=== PATIENT | male | born 1975 | race African-American/Black ===

== ENCOUNTER 2016-05-04 17:39 | Emergency (ER) | payer MEDICAID ==
[2016-05-04] MEDS ORDERED: OXYCODONE-ACETAMINOPHEN 5-325 MG TABLET PO ONE (17:57)
--- NOTE | 2016-05-04 17:58 | ER Document Report ---
ED Medical Screen (RME) - General Stated Complaint: HAND INJURY Time seen by provider: 17:55 Mode of Arrival: Ambulatory Notes: Patient states he dropped weights on his right hand earlier this week, then finger was caught in door a couple of days ago. Complains of pain and swelling. Denies previous injury to hand. I have greeted and performed a rapid initial assessment of this patient. A comprehensive ED assessment and evaluation of the patient, analysis of test results and completion of the medical decision making process will be conducted by additional ED providers. TRAVEL OUTSIDE OF THE [place] IN LAST 30 DAYS: No - Related Data Allergies/Adverse Reactions: No Known Allergies Allergy (Verified 05/04/16 17:57) Past Medical History - Immunizations Immunizations up to date: Yes Hx Diphtheria, Pertussis, Tetanus Vaccination: Yes Physical Exam - Vital signs Vitals: Temp Pulse Resp BP Pulse Ox 98.2 F 77 20 116/76 97 05/04/16 17:53 05/04/16 17:53 05/04/16 17:53 05/04/16 17:53 05/04/16 17:53 - Extremities Notes: Swelling and tenderness to right lateral hand. Pain with movement of fingers. Course - Vital Signs Vital signs: Temp Pulse Resp BP Pulse Ox 98.2 F 77 20 116/76 97 05/04/16 17:53 05/04/16 17:53 05/04/16 17:53 05/04/16 17:53 05/04/16 17:53
--- NOTE | 2016-05-04 18:36 | ER Document Report ---
ED Hand/Wrist Injury - General Mode of Arrival: Ambulatory Information source: Patient TRAVEL OUTSIDE OF THE [place] IN LAST 30 DAYS: No - HPI Injury to: Hand - right Severity: None <RAQUEL KHANNA - Last Filed: 05/04/16 22:03> <PEDRITO GORDON - Last Filed: 05/04/16 22:36> - General Chief Complaint: Hand Swelling Stated Complaint: HAND INJURY Notes: Patient is a 41-year-old male that presents to the emergency department today with complaints of right hand pain. Patient's significant other at bedside slammed his right hand in the door a few days ago. Patient denies any other symptoms. (RAQUEL KHANNA) - Related Data Allergies/Adverse Reactions: No Known Allergies Allergy (Verified 05/04/16 17:57) Past Medical History - General Information source: Patient - Social History Smoking Status: Current Every Day Smoker Cigarette use (# per day): Yes Chew tobacco use (# tins/day): No Frequency of alcohol use: None Drug Abuse: None Lives with: Spouse/Significant other Family History: Reviewed & Not Pertinent Patient has suicidal ideation: No Patient has homicidal ideation: No - Medical History Medical History: Negative Surgical Hx: Negative - Immunizations Immunizations up to date: Yes Hx Diphtheria, Pertussis, Tetanus Vaccination: Yes <RAQUEL KHANNA - Last Filed: 05/04/16 22:03> Review of Systems - Review of Systems Constitutional: No symptoms reported EENT: No symptoms reported Cardiovascular: No symptoms reported Respiratory: No symptoms reported Gastrointestinal: No symptoms reported Genitourinary: No symptoms reported Male Genitourinary: No symptoms reported Musculoskeletal: See HPI, Joint pain - right hand Skin: No symptoms reported Hematologic/Lymphatic: No symptoms reported Neurological/Psychological: No symptoms reported -: Yes All other systems reviewed and negative <RAQUEL KHANNA - Last Filed: 05/04/16 22:03> Physical Exam - Vital signs Interpretation: Normal - General General appearance: Appears well, Alert - HEENT Head: Normocephalic, Atraumatic Eyes: Normal Pupils: PERRL - Respiratory Respiratory status: No respiratory distress Chest status: Nontender Breath sounds: Normal Chest palpation: Normal - Cardiovascular Rhythm: Regular Heart sounds: Normal auscultation Murmur: No - Abdominal Inspection: Normal Distension: No distension Bowel sounds: Normal Tenderness: Nontender Organomegaly: No organomegaly - Back Back: Normal, Nontender - Extremities General upper extremity: Tender, Normal color, Normal ROM, Normal strength, Normal temperature General lower extremity: Normal inspection, Nontender, Normal color, Normal ROM , Normal temperature, Normal weight bearing. No: Toshia's sign Hand: Tender, Other - Tenderness to palpation over right fifth metacarpal, swelling, no laceration or erythema - Neurological Neuro grossly intact: Yes Cognition: Normal Orientation: AAOx4 [place] Coma Scale Eye Opening: Spontaneous [place] Coma Scale Verbal: Oriented [place] Coma Scale Motor: Obeys Commands [place] Coma Scale Total: 15 Speech: Normal Motor strength normal: LUE, RUE, LLE, RLE Sensory: Normal - Psychological Associated symptoms: Normal affect, Normal mood - Skin Skin Temperature: Warm Skin Moisture: Dry Skin Color: Normal <PEDRITO GORDON - Last Filed: 05/04/16 22:36> - Vital signs Vitals: Temp Pulse Resp BP Pulse Ox 98.2 F 77 20 116/76 97 05/04/16 17:53 05/04/16 17:53 05/04/16 17:53 05/04/16 17:53 05/04/16 17:53 Course <RAQUEL KHANNA - Last Filed: 05/04/16 22:03> - Diagnostic Test Radiology reviewed: Reports reviewed <PEDRITO GORDON - Last Filed: 05/04/16 22:36> - Re-evaluation Re-evalutation: 05/04/16 22:34 Patient with boxer's fracture. No evidence for laceration or bite. Patient will be placed in splint and is to follow-up with orthopedics. Understands agrees with plan. No other injuries. Neurovascularly intact. Stable for discharge. (PEDRITO GORDON) - Vital Signs Vital signs: Temp Pulse Resp BP Pulse Ox 98.2 F 68 16 112/73 98 05/04/16 17:53 05/04/16 20:54 05/04/16 20:54 05/04/16 20:54 05/04/16 20:54 Procedures - Immobilization Right Hand Pre-Proc Neuro Vasc Exam: Normal Immobilizer type: Ulnar Performed by: PCT Post-Proc Neuro Vasc Exam: Normal Alignment checked and good: Yes <PEDRITO GORDON - Last Filed: 05/04/16 22:36> Discharge <RAQUEL KHANNA - Last Filed: 05/04/16 22:03> <PEDRITO GORDON - Last Filed: 05/04/16 22:36> - Discharge Clinical Impression: Boxer's fracture Qualifiers: Encounter type: initial encounter Fracture type: closed Qualified Code(s): S62.309A - Unspecified fracture of unspecified metacarpal bone, initial encounter for closed fracture Condition: Stable Disposition: HOME, SELF-CARE Instructions: Fractured Fifth Metacarpal ([facility]) Prescriptions: Oxycodone HCl/Acetaminophen [Percocet 5-325 mg Tablet] 1 tab PO Q4H PRN #15 tablet PRN Reason: Referrals: SHIRLEY SIERRA [Primary Care Provider] - Follow up as needed LIBBY VELASCO DO [ACTIVE STAFF] - Follow up in 3-5 days Scribe Attestation: 05/04/16 22:36 I personally performed the services described in the documentation, reviewed and edited the documentation which was dictated to the scribe in my presence, and it accurately records my words and actions. (PEDRITO GORDON) Scribe Documentation - Scribe Written by Micheal:: Micheal Day, 05/04/2016 2205 acting as scribe for :: Emily <RAQUEL KHANNA - Last Filed: 05/04/16 22:03>
[2016-05-04 20:55] VITALS: BP 112/73
== END 2016-05-04 20:55 | disposition home or self-care (01) ==
LOC: ER 17:39
PROC: 2W3EX1Z Immobilization of Right Hand using Splint (ICD-10-PCS; principal; 2016-05-04)
DX: S62.309A Unspecified fracture of unspecified metacarpal bone, initial encounter for closed fracture (principal); F17.210 Nicotine dependence, cigarettes, uncomplicated; W20.8XXA Other cause of strike by thrown, projected or falling object, initial encounter
CPT/HCPCS: 99283

== ENCOUNTER 2017-08-04 02:48 | Emergency (ER) | payer MEDICAID ==
[2017-08-04 02:55] VITALS: BP 129/65
[2017-08-04] MEDS ORDERED: TETRACAINE HCL 0.5% OPH SOLN 2 ML OS ONE (03:29)
[2017-08-04] MEDS ORDERED: ERYTHROMYCIN 0.5% OPH OINTMENT 3.5 GM (ER DISP) OS PRN (03:43)
--- NOTE | 2017-08-04 03:53 | ER Document Report ---
ED General - General Chief Complaint: Eye Problem Stated Complaint: RT EYE IRRITATION Time Seen by Provider: 08/04/17 03:22 Notes: Patient is a 42-year-old male who presents with complaint of pain and redness in his right eye. Been there for 3 days. He got some Cipro eyedrops and start using them. He says that the eyedrops seem to make it burn worse. He denies any history of herpes. He denies any recent fevers or URI type symptoms. He says in the morning his eyes matted shut with mucus. No trauma to the eye. He does not remember anything going into his eye. He does not work with grinders or any type of mental flaking. He does not have significant photophobia. TRAVEL OUTSIDE OF THE [place] IN LAST 30 DAYS: No - Related Data Allergies/Adverse Reactions: No Known Allergies Allergy (Verified 05/04/16 17:57) Past Medical History - Social History Smoking Status: Current Every Day Smoker Frequency of alcohol use: None Drug Abuse: None Family History: Reviewed & Not Pertinent Patient has suicidal ideation: No Patient has homicidal ideation: No Renal/ Medical History: Denies: Hx Peritoneal Dialysis - Immunizations Immunizations up to date: Yes Hx Diphtheria, Pertussis, Tetanus Vaccination: Yes Review of Systems - Review of Systems Notes: My Normal Review Basic REVIEW OF SYSTEMS: CONSTITUTIONAL : Denies fever, chills, or sweats. Denies recent illness. EENT: Right eye redness RESPIRATORY: Denies cough, cold, or chest congestion. Denies shortness of breath, difficulty breathing, or wheezing. NEUROLOGICAL: Denies altered mental status or loss of consciousness. Denies headache. Denies weakness or paralysis or loss of use of either side. Denies problems with gait or speech. Denies sensory or motor loss. ALL OTHER SYSTEMS REVIEWED AND NEGATIVE. Physical Exam - Vital signs Vitals: Temp Pulse Resp BP Pulse Ox 98.3 F 76 18 129/65 H 97 08/04/17 02:54 08/04/17 02:54 08/04/17 02:54 08/04/17 02:54 08/04/17 02:54 - Notes Notes: General Appearance: Well nourished, alert, cooperative, no acute distress, no obvious discomfort. Vitals: reviewed, See vital signs table. Head: no swelling or tenderness to the head Eyes: PERRL, EOMI, patient does have some erythema to the conjunctive of the right eye. No hyphema or hypopyon. Fluorescein staining does not show any evidence of abrasion or ulceration. Cornea is not cloudy. Checo-Pen pressure of the right eye is 13. Mouth: No decreasd moisture Neuro: speech clear, oriented x 3, normal affect, responds appropriately to questions. Course - Re-evaluation Re-evalutation: 08/04/17 03:58 Patient has what appears to be conjunctivitis. His eye seems to be more irritated with the Cipro. We will change him on erythromycin ointment and refer him to the [facility]. Informants extremely important he follows up with the [facility] next couple days. Patient encouraged to return to ER if he has worsening eye redness, difficulty seeing on the eye, or she feels it is worse in any way. Patient's visual acuity was normal. Patient's intraocular pressure was normal. I do not see any evidence of abrasion or foreign body on my examination. She agrees with plan will be discharged home. Dictation of this chart was performed using voice recognition software; therefore, there may be some unintended grammatical errors. - Vital Signs Vital signs: Temp Pulse Resp BP Pulse Ox 98.3 F 76 18 129/65 H 97 08/04/17 02:54 08/04/17 02:54 08/04/17 02:54 08/04/17 02:54 08/04/17 02:54 Discharge - Discharge Clinical Impression: Pain, eye, right Conjunctivitis Qualifiers: Conjunctivitis type: acute Acute conjunctivitis type: unspecified Laterality: right Qualified Code(s): H10.31 - Unspecified acute conjunctivitis, right eye Condition: Good Disposition: HOME, SELF-CARE Additional Instructions: Please stop using the Cipro eye drops. Please start using the ointment instead. You should apply a thin layer of the Erythromycin ointment to your right eye six times a day for seven days. Please follow up closely with the [facility] boarding room. I have provided the phone number to two different [facility] boarding room. Please call to see which one can get you in within the next 1 to 3 days. Pleas return to the ER immediately if you have fevers, worsening eye pain or worsening eye redness. Prescriptions: Erythromycin Base [Erythromycin Oph 1 gm Oint Ud] 1 applic OD 6XD #1 tube Forms: Special Work Note Referrals: ALICIA ROLDAN MD [ACTIVE STAFF] - Follow up tomorrow KRIS SCHAFER DO [ACTIVE STAFF] - Follow up tomorrow
== END 2017-08-04 04:09 | disposition home or self-care (01) ==
LOC: ER 02:48
DX: H10.31 Unspecified acute conjunctivitis, right eye (principal); H57.11 Ocular pain, right eye; F17.200 Nicotine dependence, unspecified, uncomplicated
CPT/HCPCS: 99282; J3490

== ENCOUNTER 2018-09-14 10:54 | Inpatient (IN) | payer MEDICAID ==
[2018-09-14] MEDS ORDERED: ONDANSETRON HCL INJ/PF 4 MG/2 ML SDV IV ONE (11:16)
[2018-09-14] MEDS ORDERED: HYDROMORPHONE HCL INJ/PF 2 MG/ML AMPULE IV ONE (11:17)
[2018-09-14] MEDS ORDERED: KETOROLAC TROMETHAMINE INJ/PF 30 MG/1 ML SDV IV ONE (11:22)
[2018-09-14] MEDS: NORMAL SALINE 1000 ML 1,000 ML IV PRN ×2 (11:32→12:51)
[2018-09-14 11:43] LABS: ABSOLUTE LYMPHOCYTES (AUTO) 0.6 10^3/uL (0.5-4.7); ABSOLUTE MONOCYTES (AUTO) 0.4 10^3/uL (0.1-1.4); ABSOLUTE NEUT (AUTO) 7.6 10^3/uL (1.7-8.2); BASOPHILS % (AUTO) 0.3 % (0-2); EOSINOPHILS % (AUTO) 0.1 % (0-6); HEMATOCRIT 45.2 % (37.9-51.0); HEMOGLOBIN 15.2 g/dL (13.5-17.0); LYMPHOCYTES % (AUTO) 6.5 % (13-45); MEAN CORPUSCULAR HEMOGLOBIN 32.9 pg (27.0-33.4); MEAN CORPUSCULAR HGB CONC 33.7 g/dL (32.0-36.0); MEAN CORPUSCULAR VOLUME 98 fl (80-97); MONOCYTES % (AUTO) 4.3 % (3-13); PLATELET COUNT 264 10^3/uL (150-450); RED BLOOD COUNT 4.62 10^6/uL (4.35-5.55); RED CELL DISTRIBUTION WIDTH 14.2 % (11.5-14.0); SEGMENTED NEUTROPHILS % (AUTO) 88.8 % (42-78); TOTAL CELLS COUNTED % (AUTO) 100 %; WHITE BLOOD COUNT 8.6 10^3/uL (4.0-10.5)
[2018-09-14 12:03] LABS: ALANINE AMINOTRANSFERASE 85 U/L (21-72); ALBUMIN 4.8 g/dL (3.5-5.0); ALKALINE PHOSPHATASE 57 U/L (38-126); ANION GAP 12 (5-19); ASPARTATE AMINO TRANSFERASE 77 U/L (17-59); BILIRUBIN,DIRECT 0.3 mg/dL (0.0-0.4); BILIRUBIN,TOTAL 1.1 mg/dL (0.2-1.3); BLOOD UREA NITROGEN 9 mg/dL (7-20); CALCIUM 10.5 mg/dL (8.4-10.2); CARBON DIOXIDE 25 mmol/L (22-30); CHLORIDE 102 mmol/L (98-107); GLUCOSE 104 mg/dL (75-110); POTASSIUM 4.8 mmol/L (3.6-5.0); SODIUM 138.8 mmol/L (137-145); TOTAL PROTEIN 8.5 g/dL (6.3-8.2)
[2018-09-14 12:06] LABS: ALCOHOL < 10 mg/dL (NONE DETECTED)
[2018-09-14 12:10] LABS: LIPASE 3502.8 U/L (23-300)
--- NOTE | 2018-09-14 12:38 | ER Document Report ---
ED GI/ - General Chief Complaint: Abdominal Pain Stated Complaint: ABDOMINAL PAIN Time Seen by Provider: 09/14/18 11:11 Primary Care Provider: SHIRLEY SIERRA [Primary Care Provider] - Follow up as needed Notes: Patient is complaining of "stomach pains" since yesterday about 2 PM. He is never had anything like this before. Pain is in the mid epigastric region and very sharp and severe. He is vomited about 3 times. No change in his bowel habits. Has not had any fever. No history of any abdominal surgeries. Patient does not have any history of pancreatitis. However, does acknowledge drinking very heavily, although none in the past 24 hours because of his vomiting. Patient is not on any regular prescription medications. TRAVEL OUTSIDE OF THE [place] IN LAST 30 DAYS: No - Related Data Allergies/Adverse Reactions: No Known Allergies Allergy (Verified 09/14/18 10:55) Past Medical History - Social History Smoking Status: Unknown if Ever Smoked Frequency of alcohol use: Heavy Family History: Reviewed & Not Pertinent Past Surgical History: Reports: None - Immunizations Immunizations up to date: Yes Hx Diphtheria, Pertussis, Tetanus Vaccination: Yes Review of Systems - Review of Systems Notes: REVIEW OF SYSTEMS: CONSTITUTIONAL : Denies fever. EENT: Denies eye, ear, nose or mouth or throat pain or other symptoms. CARDIOVASCULAR: Denies chest pain. RESPIRATORY: Denies cough, chest congestion, or shortness of breath. GASTROINTESTINAL: See HPI. GENITOURINARY: Denies difficulty or painful urinating, urinary frequency, blood in urine. MUSCULOSKELETAL: Denies back or neck pain. Denies joint pain or swelling. SKIN: Denies rash or skin lesions. NEUROLOGICAL: Denies LOC or altered mental status. Denies headache. Denies sensory loss or motor deficits. ALL OTHER SYSTEMS REVIEWED AND NEGATIVE. Physical Exam - Vital signs Vitals: Temp Pulse Resp BP Pulse Ox 97.7 F 102 H 14 161/126 H 97 09/14/18 10:57 09/14/18 10:57 09/14/18 10:57 09/14/18 10:57 09/14/18 10:57 Interpretation: Hypertensive - 161/126. Notes: PHYSICAL EXAMINATION: GENERAL: Well-appearing, in no acute distress. Patient appears to be in severe pain, laying on his right side. Difficult to get him to lay onto his back. Actively vomiting in his room at this time. HEAD: Atraumatic, normocephalic. EYES: Pupils equal round and reactive to light, extraocular movements intact. ENT: oropharynx clear without exudates. Moist mucous membranes. NECK: Normal range of motion, supple. LUNGS: Breath sounds clear and equal bilaterally. HEART: Regular rate and rhythm without murmurs. ABDOMEN: Extremely tender in the midepigastrium to any firm pressure. No masses felt. No bruits heard. No surgical scars. BACK: No tenderness throughout entire back. EXTREMITIES: Normal range of motion without pain. NEUROLOGICAL: Normal speech, normal gait. Normal sensory, motor, and reflex exams. Awake, alert, and oriented x3. Cranial nerves normal. PSYCH: Normal mood, normal affect. SKIN: Warm, dry, no rashes. Course - Re-evaluation Re-evalutation: 09/14/18 12:37 Patient's lipase is 3500, LFTs are very slightly elevated. Remaining lab studies were all normal. Have contacted hospitalist will admit the patient for fluids and pain management. - Vital Signs Vital signs: Temp Pulse Resp BP Pulse Ox 97.9 F 102 H 13 126/80 H 99 09/14/18 11:10 09/14/18 10:57 09/14/18 12:01 09/14/18 12:01 09/14/18 12:01 - Laboratory Result Diagrams: 09/14/18 11:20 09/14/18 11:20 Laboratory results interpreted by me: 09/14/18 09/14/18 11:20 11:20 MCV 98 H RDW 14.2 H Seg Neutrophils % 88.8 H Lymphocytes % 6.5 L Calcium 10.5 H AST 77 H ALT 85 H Total Protein 8.5 H Lipase 3502.8 H Discharge - Discharge Clinical Impression: Abdominal pain with vomiting, Pancreatitis Disposition: ADMITTED INPATIENT Admitting Provider: Yanira (Hospitalist) Unit Admitted: Medical Floor Referrals: SHIRLEY SIERRA [Primary Care Provider] - Follow up as needed
[2018-09-14] MEDS ORDERED: DEXTROSE 50%-WATER 25 GM/50 ML DISP.SYRIN IV PRN (12:57)
[2018-09-14] MEDS ORDERED: ONDANSETRON HCL INJ/PF 4 MG/2 ML SDV IV PRN (12:57)
[2018-09-14] MEDS ORDERED: DEXTROSE 40% GEL 15 GM TUBE PO PRN ×2 (12:57)
[2018-09-14] MEDS ORDERED: GLUCAGON,HUMAN RECOMB 1 MG INJ SUBCUT PRN (12:57)
[2018-09-14 13:11] LABS: APPEARANCE,URINE CLEAR; BILIRUBIN,URINE NEGATIVE (NEGATIVE); COLOR,URINE YELLOW; GLUCOSE, URINE NEGATIVE (NEGATIVE); KETONES,URINE 80 mg/dL (NEGATIVE); LEUKOCYTE ESTERASE,URINE NEGATIVE (NEGATIVE); NITRITE,URINE NEGATIVE (NEGATIVE); PROTEIN,URINE 100 mg/dL (NEGATIVE); URINE SPECIFIC GRAVITY 1.025; UROBILINOGEN,URINE NEGATIVE mg/dL (<2.0)
[2018-09-14 13:27] LABS: URINE AMPHETAMINES SCREEN NEGATIVE; URINE BARBITURATES SCREEN NEGATIVE; URINE BENZODIAZEPINES SCREEN NEGATIVE; URINE COCAINE SCREEN NEGATIVE; URINE MARIJUANA (THC) SCREEN NEGATIVE; URINE METHADONE SCREEN NEGATIVE; URINE PHENCYCLIDINE SCREEN NEGATIVE
[2018-09-14 14:08] LABS: INTERNATIONAL RATION (INR) 1.24; PROTHROMBIN TIME 15.7 SEC (11.4-15.4)
[2018-09-14 14:09] LABS: PARTIAL THROMBOPLASTIN TIME 26.7 SEC (23.5-35.8)
[2018-09-14] MEDS: HEPARIN SOD (PORCINE) 5,000 UNIT/ML 1 ML SYRINGE SUBCUT SCH ×2 (15:31→22:11)
[2018-09-14] MEDS: HYDROMORPHONE HCL INJ/PF 2 MG/ML AMPULE IV PRN ×2 (15:31→19:49)
[2018-09-14] MEDS ORDERED: LORAZEPAM INJ 2 MG/1 ML VIAL IV PRN (15:35)
--- NOTE | 2018-09-14 16:07 | PDOC H&P ---
History of Present Illness Admission Date/PCP: 09/14/18 12:47 SHIRLEY MARIELA Patient complains of: Midline abdominal pain and midline severe back pain History of Present Illness: THEODORE FISCHER is a 43 year old man who has a history of extensive alcohol use. He drinks about 12 beers on a daily basis. He is never had alcohol withdrawal and he has never had pancreatitis. Yesterday after he had a beer he had sudden onset of midline back pain radiating out to both sides. Along with that he had severe epigastric pain. He has had several episodes of emesis. No coffee grounds or blood. Came to the ER because the pain was so severe. No chest pain or difficulty breathing. No fevers or chills. Past Medical History Medical History: None Past Surgical History Past Surgical History: Reports: None, Orthopedic Surgery - left arm fracture Social History Information Source: Patient Occupation: disability for a "learning problem" Smoking Status: Unknown if Ever Smoked Frequency of Alcohol Use: Heavy - 12 pack daily for unknown number of years Amount of Alcoholic Beverages Per Day: 12 beers per day Last Alcohol Use: 09/13/18 Drugs: None Hx Prescription Drug Abuse: No Past Social History Note: one cigarette per day - Advance Directive Resuscitation Status: Full Code Surrogate healthcare decision maker:: mother: Ailyn Norton [phone] Family History Parental Family History Reviewed: Yes - none he is aware of Children Family History Reviewed: Yes - he has a 21 yo son with no medical problems Sibling(s) Family History Reviewed.: Yes - none he is aware of Medication/Allergy Home Medications: No Home Medications 09/14/18 Allergies/Adverse Reactions: No Known Allergies Allergy (Verified 09/14/18 10:55) Review of Systems Constitutional: PRESENT: anorexia. ABSENT: chills, fever(s), headache(s), weakness Eyes: ABSENT: visual disturbances Ears: ABSENT: hearing changes Nose, Mouth, and Throat: ABSENT: mouth pain Cardiovascular: ABSENT: chest pain, dyspnea on exertion, edema, orthropnea, palpitations Gastrointestinal: PRESENT: abdominal pain, nausea, vomiting. ABSENT: coffee ground emesis, constipation, diarrhea, dysphagia, hematemesis, melena Genitourinary: ABSENT: dysuria, hematuria Musculoskeletal: ABSENT: deformity, joint swelling, muscle weakness Integumentary: ABSENT: diaphoresis, wounds Neurological: ABSENT: convulsions, dizziness, frequent falls, numbness, tingling, weakness Psychiatric: ABSENT: anxiety, depression Hematologic/Lymphatic: ABSENT: easy bleeding Physical Exam Vital Signs: Temp Pulse Resp BP Pulse Ox 98.9 F 55 L 18 137/92 H 100 09/14/18 14:20 09/14/18 14:20 09/14/18 14:20 09/14/18 14:20 09/14/18 14:20 Intake & Output 09/13/18 09/14/18 09/15/18 06:59 06:59 06:59 Intake Total 1999 Balance 1999 Weight 59.9 kg General appearance: PRESENT: mild distress, thin Head exam: PRESENT: atraumatic, normocephalic Eye exam: PRESENT: EOMI. ABSENT: conjunctival injection, scleral icterus Ear exam: PRESENT: normal external ear exam Mouth exam: PRESENT: neck supple, tongue midline Neck exam: ABSENT: tenderness, tracheostomy Respiratory exam: PRESENT: clear to auscultation gibran, unlabored. ABSENT: rales, rhonchi, wheezes Cardiovascular exam: PRESENT: RRR, +S1, +S2. ABSENT: systolic murmur Pulses: PRESENT: normal radial pulses Vascular exam: PRESENT: normal capillary refill GI/Abdominal exam: PRESENT: diminished bowel sounds, guarding, tenderness. ABSENT: ascites, distended Rectal exam: PRESENT: deferred Gentrourinary exam: ABSENT: indwelling catheter Extremities exam: ABSENT: calf tenderness, joint swelling, pedal edema Musculoskeletal exam: PRESENT: normal inspection. ABSENT: deformity Neurological exam: PRESENT: alert, awake, oriented to person, oriented to place, oriented to situation, CN II-XII grossly intact Psychiatric exam: PRESENT: appropriate affect. ABSENT: anxious Skin exam: PRESENT: dry, intact, warm Results Laboratory Results: 09/14/18 11:20 09/14/18 11:20 09/14/18 09/14/18 09/14/18 11:10 11:20 11:20 WBC 8.6 RBC 4.62 Hgb 15.2 Hct 45.2 MCV 98 H MCH 32.9 MCHC 33.7 RDW 14.2 H Plt Count 264 Seg Neutrophils % 88.8 H Lymphocytes % 6.5 L Monocytes % 4.3 Eosinophils % 0.1 Basophils % 0.3 Absolute Neutrophils 7.6 Absolute Lymphocytes 0.6 Absolute Monocytes 0.4 Absolute Eosinophils 0.0 Absolute Basophils 0.0 Sodium 138.8 Potassium 4.8 Chloride 102 Carbon Dioxide 25 Anion Gap 12 BUN 9 Creatinine 0.72 Est GFR ( Amer) > 60 Est GFR (Non-Af Amer) > 60 Glucose 104 Calcium 10.5 H Total Bilirubin 1.1 AST 77 H ALT 85 H Alkaline Phosphatase 57 Total Protein 8.5 H Albumin 4.8 Lipase 3502.8 H TSH 0.44 L Urine Color Urine Appearance Urine pH Ur Specific [place] Urine Protein Urine Glucose (UA) Urine Ketones Urine Blood Urine Nitrite Ur Leukocyte Esterase Urine WBC (Auto) Urine RBC (Auto) 09/14/18 12:55 WBC RBC Hgb Hct MCV MCH MCHC RDW Plt Count Seg Neutrophils % Lymphocytes % Monocytes % Eosinophils % Basophils % Absolute Neutrophils Absolute Lymphocytes Absolute Monocytes Absolute Eosinophils Absolute Basophils Sodium Potassium Chloride Carbon Dioxide Anion Gap BUN Creatinine Est GFR ( Amer) Est GFR (Non-Af Amer) Glucose Calcium Total Bilirubin AST ALT Alkaline Phosphatase Total Protein Albumin Lipase TSH Urine Color YELLOW Urine Appearance CLEAR Urine pH 5.0 Ur Specific [place] 1.025 Urine Protein 100 H Urine Glucose (UA) NEGATIVE Urine Ketones 80 H Urine Blood NEGATIVE Urine Nitrite NEGATIVE Ur Leukocyte Esterase NEGATIVE Urine WBC (Auto) 2 Urine RBC (Auto) 1 Assessment and Plan - Diagnosis (1) Pancreatitis Qualifiers: Chronicity: acute Is this a current diagnosis for this admission?: Yes Plan: Probably related to excessive alcohol intake. I had a discussion with the patient the importance of discontinuation of alcohol. We will continue to in house counsel him on the importance of alcohol cessation. For the pancreatitis he will be on IV fluids, n.p.o., Dilaudid 1 mg IV every 4 hours as needed moderate to severe pain. Will increase the Dilaudid frequency if needed to control pain. We will monitor closely for adverse effects of Dilaudid. (2) Back pain Qualifiers: Back pain location: thoracic back pain Chronicity: acute Back pain laterality: bilateral Qualified Code(s): M54.6 - Pain in thoracic spine Is this a current diagnosis for this admission?: Yes Plan: Probably related to the pancreatitis. The back pain is severe. He reports muscle spasm. Because of this in the setting of the acute pancreatitis CT scan of the abdomen and pelvis has been ordered to evaluate for complications related to the pancreatitis. We will treat pain with Dilaudid as noted above. (3) Alcohol use disorder Is this a current diagnosis for this admission?: Yes Plan: Alcohol cessation counseling occurred. However patient is in severe pain with the pancreatitis so this is probably not the best time to engage in counseling. Continue to in house counsel the patient on alcohol cessation. He has no signs of alcohol withdrawal and has not withdrawn in the past as far as he knows. I have ordered Ativan 2 mg IV every 4 hours as needed agitation and asked the nursing staff to call physician on duty if patient starts to use this Ativan so that we can address possible withdrawal quickly. (4) Abdominal pain with vomiting Is this a current diagnosis for this admission?: Yes Plan: Likely related to acute pancreatitis. No coffee grounds or bright red blood in the vomitus. She has Zofran ordered as needed. Will monitor closely. H&H are not concerning at this time. - Time Time Spent with patient: 25-34 minutes Anticipated discharge: Home - Inpatient Certification Based on my medical assessment, after consideration of the patient's comorbi dities, presenting symptoms, or acuity I expect that the services needed warrant INPATIENT care.: Yes I certify that my determination is in accordance with my understanding of Medicare's requirements for reasonable and necessary INPATIENT services [42 CFR 412.3e].: Yes Medical Necessity: Need For IV Fluids, Need for Pain Control - Plan Summary Plan Summary: This patient has acute alcoholic pancreatitis. He needs IV fluids and IV pain medicine. He is n.p.o. I suspect that he will be here greater than 2 midnights secondary to this acute condition. Also he has a history of daily alcohol use. I have ordered as needed Ativan, no signs of alcohol withdrawal at this time.
--- NOTE | 2018-09-14 17:46 | RADIOLOGY REPORT (SQ) ---
EXAM DESCRIPTION: CT ABD/PELVIS ORAL ONLY COMPLETED DATE/TIME: 09/14/2018 4:31 pm REASON FOR STUDY: acute pancreatitis, severe back pain . Abdominal pain, vomiting, elevated lipase. COMPARISON: None. TECHNIQUE: CT scan of the abdomen and pelvis performed with oral contrast and no intravenous contras t. Images reviewed with lung, soft tissue, and bone windows. Reconstructed coronal and sagittal MPR i mages reviewed. All images stored on PACS. All CT scanners at this facility use dose modulation, iterative reconstruction, and/or weight based d osing when appropriate to reduce radiation dose to as low as reasonably achievable (ALARA). [facility]: Dose Right [facility]: CareDose [facility]: Dose Right [facility]: Teradose 4D [facility]: [employer] RADIATION DOSE: CT Rad equipment meets quality standard of care and radiation dose reduction techniq ues were employed. CTDIvol: 4.8 mGy. DLP: 261 mGy-cm.mGy. LIMITATIONS: None. FINDINGS: LOWER CHEST: Mild bibasilar atelectasis and trace bilateral pleural effusions. NON-CONTRASTED LIVER, SPLEEN, ADRENALS: Evaluation limited by lack of IV contrast. No identified sign ificant masses. PANCREAS: There are peripancreatic inflammatory changes. GALLBLADDER: No identified stones by CT criteria. No inflammatory changes to suggest cholecystitis. RIGHT KIDNEY AND URETER: Assessment for masses limited by lack of IV contrast. No significant calci fications. No hydronephrosis or hydroureter. LEFT KIDNEY AND URETER: Assessment for masses limited by lack of IV contrast. No significant calcif ications. No hydronephrosis or hydroureter. AORTA AND RETROPERITONEUM: No abdominal aortic aneurysm. No retroperitoneal masses or hemorrhage. BOWEL AND PERITONEAL CAVITY: The oral contrast has reached the cecum, no small bowel obstruction. Tr del free fluid. Inflammatory changes are noted at small bowel loops at the upper abdomen. APPENDIX: Normal. PELVIS, BLADDER, AND ABDOMINAL WALL:No pelvic mass. Trace free fluid. Bladder distended. BONES: No significant findings. IMPRESSION: 1. Peripancreatic inflammatory changes with trace ascites, suggestive of acute pancreat itis. The inflammatory changes extend to adjacent small bowel loops at the upper abdomen, superimpos ed enteritis is not excludable. 2. Mild bibasilar atelectasis and trace bilateral pleural effusions. TECHNICAL DOCUMENTATION: JOB ID: [id number] [employer] Quality ID # [id number]: Final reports with documentation of one or more dose reduction techniques (e.g., Au tomated exposure control, adjustment of the mA and/or kV according to patient size, use of iterative reconstruction technique) 2010 [employer]- All Rights Reserved Reading location - IP/workstation name: [email or web address]
[2018-09-14] MEDS: RINGERS SOLUTION,LACTATED 1,000 ML IV PRN (18:12)
[2018-09-15] MEDS: HYDROMORPHONE HCL INJ/PF 2 MG/ML AMPULE IV PRN ×6 (00:56→20:20)
[2018-09-15] MEDS: RINGERS SOLUTION,LACTATED 1,000 ML IV PRN ×3 (00:56→11:53)
[2018-09-15] MEDS: HEPARIN SOD (PORCINE) 5,000 UNIT/ML 1 ML SYRINGE SUBCUT SCH ×3 (05:02→21:06)
[2018-09-15 07:29] LABS: HEMATOCRIT 41.6 % (37.9-51.0); MEAN CORPUSCULAR HEMOGLOBIN 32.9 pg (27.0-33.4); MEAN CORPUSCULAR HGB CONC 33.7 g/dL (32.0-36.0); MEAN CORPUSCULAR VOLUME 98 fl (80-97); PLATELET COUNT 214 10^3/uL (150-450); RED BLOOD COUNT 4.26 10^6/uL (4.35-5.55); RED CELL DISTRIBUTION WIDTH 13.9 % (11.5-14.0); WHITE BLOOD COUNT 8.3 10^3/uL (4.0-10.5)
[2018-09-15 08:09] LABS: ALANINE AMINOTRANSFERASE 54 U/L (21-72); ALBUMIN 3.5 g/dL (3.5-5.0); ALKALINE PHOSPHATASE 47 U/L (38-126); ANION GAP 11 (5-19); ASPARTATE AMINO TRANSFERASE 43 U/L (17-59); BILIRUBIN,DIRECT 0.4 mg/dL (0.0-0.4); BILIRUBIN,TOTAL 0.9 mg/dL (0.2-1.3); BLOOD UREA NITROGEN 8 mg/dL (7-20); CALCIUM 8.9 mg/dL (8.4-10.2); CARBON DIOXIDE 23 mmol/L (22-30); CHLORIDE 101 mmol/L (98-107); POTASSIUM 4.2 mmol/L (3.6-5.0); SODIUM 134.8 mmol/L (137-145); TOTAL PROTEIN 6.3 g/dL (6.3-8.2)
[2018-09-15 08:21] LABS: GLUCOSE 64 mg/dL (75-110)
[2018-09-15] MEDS: DEXTROSE 50%-WATER 25 GM/50 ML DISP.SYRIN IV PRN (10:00)
[2018-09-15] MEDS: MAGNESIUM SULFATE/D5W 1 GM/100 ML RTUPB IV SCH ×2 (16:37→17:19)
[2018-09-15] MEDS: NORMAL SALINE 1000 ML 1,000 ML with POTASSIUM CHLORIDE 20 MEQ, MAGNESIUM SULFATE 8 MEQ,... IV SCH ×5 (18:33)
--- NOTE | 2018-09-15 19:14 | PDOC PROGRESS REPORT ---
Subjective Progress Note for:: 09/15/18 Subjective:: THEODORE FISCHER is a 43 year old man who has a history of extensive alcohol use admitted 09/14/18 for alcoholic pancreatitis. Patient was seen on afternoon with family present. He was found sitting upright in bed on room air. He appeared to be uncomfortable, though not in any acute distress. He reports continued epigastric abdominal pain radiating to his back. He denies nausea or vomiting. He further denies fever, chills, chest pain, palpitations, dyspnea. He has no other questions or concerns. No concerns per nursing. Reason For Visit: ALCOHOL INDUCED PANCREATITIS Physical Exam Vital Signs: Temp Pulse Resp BP Pulse Ox 99.9 F 85 18 138/79 H 94 09/15/18 15:06 09/15/18 15:06 09/15/18 15:06 09/15/18 15:06 09/15/18 15:06 Intake & Output 09/14/18 09/15/18 09/16/18 06:59 06:59 06:59 Intake Total 3977 2170 Output Total 200 Balance 3777 2170 Weight 58.6 kg General appearance: PRESENT: no acute distress, cooperative, thin, well- developed, well-nourished Head exam: PRESENT: atraumatic, normocephalic Eye exam: PRESENT: conjunctiva pink, EOMI, PERRLA. ABSENT: scleral icterus Ear exam: PRESENT: normal external ear exam Mouth exam: PRESENT: moist, tongue midline Neck exam: ABSENT: carotid bruit, JVD, lymphadenopathy, thyromegaly Respiratory exam: PRESENT: clear to auscultation gibran, symmetrical, unlabored. ABSENT: rales, rhonchi, wheezes Cardiovascular exam: PRESENT: RRR, +S1, +S2. ABSENT: diastolic murmur, rubs, s ystolic murmur Pulses: PRESENT: normal dorsalis pedis pul Vascular exam: PRESENT: normal capillary refill GI/Abdominal exam: PRESENT: normal bowel sounds, soft, tenderness. ABSENT: distended, guarding, mass, organolmegaly, rebound Rectal exam: PRESENT: deferred Extremities exam: PRESENT: full ROM. ABSENT: calf tenderness, clubbing, pedal edema Neurological exam: PRESENT: alert, awake, oriented to person, oriented to place, oriented to time, oriented to situation, CN II-XII grossly intact. ABSENT: motor sensory deficit Psychiatric exam: PRESENT: appropriate affect, normal mood. ABSENT: homicidal ideation, suicidal ideation Skin exam: PRESENT: dry, intact, warm. ABSENT: cyanosis, rash Results Laboratory Results: 09/15/18 07:00 09/15/18 07:00 09/15/18 09/15/18 07:00 07:00 WBC 8.3 RBC 4.26 L Hgb 14.0 Hct 41.6 MCV 98 H MCH 32.9 MCHC 33.7 RDW 13.9 Plt Count 214 Sodium 134.8 L Potassium 4.2 Chloride 101 Carbon Dioxide 23 Anion Gap 11 BUN 8 Creatinine 0.62 Est GFR ( Amer) > 60 Est GFR (Non-Af Amer) > 60 Glucose 64 L Calcium 8.9 Magnesium 1.4 L Total Bilirubin 0.9 AST 43 ALT 54 Alkaline Phosphatase 47 Total Protein 6.3 Albumin 3.5 Impressions: Abdomen/Pelvis CT 09/14/18 00:00 IMPRESSION: 1. Peripancreatic inflammatory changes with trace ascites, suggestive of acute pancreatitis. The inflammatory changes extend to adjacent small bowel loops at the upper abdomen, superimposed enteritis is not excludable. 2. Mild bibasilar atelectasis and trace bilateral pleural effusions. Assessment and Plan - Diagnosis (1) Pancreatitis Qualifiers: Chronicity: acute Is this a current diagnosis for this admission?: Yes Plan: Ct ABD/Pelvis reveals peripancreatic inflammatory changes with mild bibasilar atelectaisis and trace pleural effusions. Patient is admitted to the medical floor. He is placed in NPO status. Continue IVF. Antiemetics and analgesics as needed. Accu-Cheks every 6 hours with hypoglycemia protocol. Indications for antibiotic therapy at this time. Monitor daily chemistry. (2) Abdominal pain with vomiting Is this a current diagnosis for this admission?: Yes Plan: Improved; no further episodes of nausea/vomiting. Secondary to acute pancreatitis. Management as above. (3) Back pain Qualifiers: Back pain location: thoracic back pain Chronicity: acute Back pain laterality: bilateral Qualified Code(s): M54.6 - Pain in thoracic spine Is this a current diagnosis for this admission?: Yes Plan: Likely related to the pancreatitis. Evaluation and management as above. (4) Alcohol use disorder Is this a current diagnosis for this admission?: Yes Plan: Cessation encouraged. Patient is provided IV banana bag nightly. IV Ativan as needed for alcohol withdrawal symptoms. - Time Time Spent with patient: 25-34 minutes Medications reviewed and adjusted accordingly: Yes Anticipated discharge: Home
--- NOTE | 2018-09-15 19:14 | Progress Note Acknowledgement ---
Progress Note Acknowledgement Progess Note Acknowledgement: I, the undersigned member of the medical staff with appropriate privileges and with supervisory authority over Felisa Chavira, a [facility] practice allied health professional, acknowledge that I have reviewed the progress notes entered on this patient, and in my professional judgment believe that the assessment made and/or any care evidenced was appropriate
[2018-09-15] MEDS ORDERED: ACETAMINOPHEN 325 MG TABLET PO PRN (19:59)
[2018-09-16] MEDS: HYDROMORPHONE HCL INJ/PF 2 MG/ML AMPULE IV PRN ×6 (01:49→21:22)
[2018-09-16] MEDS: HEPARIN SOD (PORCINE) 5,000 UNIT/ML 1 ML SYRINGE SUBCUT SCH ×3 (05:00→21:25)
[2018-09-16] MEDS: RINGERS SOLUTION,LACTATED 1,000 ML IV PRN ×3 (05:09→16:09)
[2018-09-16 06:11] LABS: HEMATOCRIT 42.7 % (37.9-51.0); HEMOGLOBIN 14.4 g/dL (13.5-17.0); MEAN CORPUSCULAR HEMOGLOBIN 33.1 pg (27.0-33.4); MEAN CORPUSCULAR HGB CONC 33.7 g/dL (32.0-36.0); MEAN CORPUSCULAR VOLUME 98 fl (80-97); PLATELET COUNT 201 10^3/uL (150-450); RED BLOOD COUNT 4.36 10^6/uL (4.35-5.55); RED CELL DISTRIBUTION WIDTH 14.2 % (11.5-14.0); WHITE BLOOD COUNT 12.7 10^3/uL (4.0-10.5)
[2018-09-16 06:32] LABS: ANION GAP 11 (5-19); BLOOD UREA NITROGEN 7 mg/dL (7-20); CALCIUM 8.6 mg/dL (8.4-10.2); CARBON DIOXIDE 23 mmol/L (22-30); CHLORIDE 100 mmol/L (98-107); LIPASE 328.9 U/L (23-300); POTASSIUM 4.3 mmol/L (3.6-5.0)
[2018-09-16 07:01] LABS: GLUCOSE 58 mg/dL (75-110)
[2018-09-16] MEDS: DEXTROSE 50%-WATER 25 GM/50 ML DISP.SYRIN IV PRN ×2 (07:56→12:21)
[2018-09-16] MEDS: NORMAL SALINE 1000 ML 1,000 ML with POTASSIUM CHLORIDE 20 MEQ, MAGNESIUM SULFATE 8 MEQ,... IV SCH ×5 (18:07)
--- NOTE | 2018-09-16 18:27 | Progress Note Acknowledgement ---
Progress Note Acknowledgement Progess Note Acknowledgement: I, the undersigned member of the medical staff with appropriate privileges and with supervisory authority over Felisa Chavira, a [facility] practice allied health professional, acknowledge that I have reviewed the progress notes entered on this patient, and in my professional judgment believe that the assessment made and/or any care evidenced was appropriate
--- NOTE | 2018-09-16 18:31 | PDOC PROGRESS REPORT ---
Subjective Progress Note for:: 09/16/18 Subjective:: THEODORE FISCHER is a 43 year old man who has a history of extensive alcohol use admitted 09/14/18 for alcoholic pancreatitis. Patient was seen on morning rounds. He was found sitting upright in bed on room air. He reports continued epigastric abdominal pain radiating to his back. He denies nausea or vomiting. Overall improved and requesting to eat. He further denies fever, chills, chest pain, palpitations, dyspnea. He has no other questions or concerns. No concerns per nursing. Reason For Visit: ALCOHOL INDUCED PANCREATITIS Physical Exam Vital Signs: Temp Pulse Resp BP Pulse Ox 99.9 F 81 18 129/70 H 92 09/16/18 16:14 09/16/18 16:14 09/16/18 16:14 09/16/18 16:14 09/16/18 16:14 Intake & Output 09/15/18 09/16/18 09/17/18 06:59 06:59 06:59 Intake Total 3977 3193 1999 Output Total 200 Balance 3777 3193 1999 Weight 58.6 kg General appearance: PRESENT: no acute distress, cooperative, well-developed, well-nourished Head exam: PRESENT: atraumatic, normocephalic Eye exam: PRESENT: conjunctiva pink, EOMI, PERRLA. ABSENT: scleral icterus Ear exam: PRESENT: normal external ear exam Mouth exam: PRESENT: moist, tongue midline Neck exam: ABSENT: carotid bruit, JVD, lymphadenopathy, thyromegaly Respiratory exam: PRESENT: clear to auscultation gibran, symmetrical, unlabored. ABSENT: rales, rhonchi, wheezes Cardiovascular exam: PRESENT: RRR. ABSENT: diastolic murmur, rubs, systolic murmur Pulses: PRESENT: normal dorsalis pedis pul Vascular exam: PRESENT: normal capillary refill GI/Abdominal exam: PRESENT: hyperactive bowel sounds, soft, tenderness - epigastric. ABSENT: distended, guarding, mass, organolmegaly, rebound Rectal exam: PRESENT: deferred Extremities exam: PRESENT: full ROM. ABSENT: calf tenderness, clubbing, pedal edema Neurological exam: PRESENT: alert, awake, oriented to person, oriented to place, oriented to time, oriented to situation, CN II-XII grossly intact. ABSENT: motor sensory deficit Psychiatric exam: PRESENT: appropriate affect, normal mood. ABSENT: homicidal ideation, suicidal ideation Skin exam: PRESENT: dry, intact, warm. ABSENT: cyanosis, rash Results Laboratory Results: 09/16/18 05:31 09/16/18 05:31 09/16/18 09/16/18 05:31 05:31 WBC 12.7 H RBC 4.36 Hgb 14.4 Hct 42.7 MCV 98 H MCH 33.1 MCHC 33.7 RDW 14.2 H Plt Count 201 Sodium 134.0 L Potassium 4.3 Chloride 100 Carbon Dioxide 23 Anion Gap 11 BUN 7 Creatinine 0.62 Est GFR ( Amer) > 60 Est GFR (Non-Af Amer) > 60 Glucose 58 L Calcium 8.6 Magnesium 2.3 Lipase 328.9 H Impressions: Abdomen/Pelvis CT 09/14/18 00:00 IMPRESSION: 1. Peripancreatic inflammatory changes with trace ascites, suggestive of acute pancreatitis. The inflammatory changes extend to adjacent small bowel loops at the upper abdomen, superimposed enteritis is not excludable. 2. Mild bibasilar atelectasis and trace bilateral pleural effusions. Assessment and Plan - Diagnosis (1) Pancreatitis Qualifiers: Chronicity: acute Is this a current diagnosis for this admission?: Yes Plan: Ct ABD/Pelvis reveals peripancreatic inflammatory changes with mild bibasilar atelectaisis and trace pleural effusions. Lipase 3502-> 328 Pain is improved; requesting to eat. WBC 12.7 today, TMax 100.3 overnight. Patient is admitted to the medical floor. Advance to clear liquids today. Continue IVF. Antiemetics and analgesics as needed. Accu-Cheks every 6 hours with hypoglycemia protocol. Monitor closely for worsening leukocytosis or fever; consider repeat imaging and/or initiating antibiotic therapy. Monitor daily chemistry. (2) Abdominal pain with vomiting Is this a current diagnosis for this admission?: Yes Plan: Improved; no further episodes of nausea/vomiting. Pain is decreased. Secondary to acute pancreatitis. Management as above. (3) Back pain Qualifiers: Back pain location: thoracic back pain Chronicity: acute Back pain laterality: bilateral Qualified Code(s): M54.6 - Pain in thoracic spine Is this a current diagnosis for this admission?: Yes Plan: Likely related to the pancreatitis. Evaluation and management as above. (4) Alcohol use disorder Is this a current diagnosis for this admission?: Yes Plan: Cessation encouraged. Patient is provided IV banana bag nightly. IV Ativan as needed for alcohol withdrawal symptoms. - Time Time Spent with patient: 25-34 minutes Medications reviewed and adjusted accordingly: Yes Anticipated discharge: Home Within: within 48 hours
[2018-09-17] MEDS: HYDROMORPHONE HCL INJ/PF 2 MG/ML AMPULE IV PRN ×3 (00:35→08:05)
[2018-09-17] MEDS: HEPARIN SOD (PORCINE) 5,000 UNIT/ML 1 ML SYRINGE SUBCUT SCH ×3 (05:04→21:19)
[2018-09-17 06:25] LABS: HEMATOCRIT 41.8 % (37.9-51.0); HEMOGLOBIN 14.1 g/dL (13.5-17.0); MEAN CORPUSCULAR HGB CONC 33.8 g/dL (32.0-36.0); MEAN CORPUSCULAR VOLUME 98 fl (80-97); PLATELET COUNT 185 10^3/uL (150-450); RED BLOOD COUNT 4.27 10^6/uL (4.35-5.55); RED CELL DISTRIBUTION WIDTH 13.7 % (11.5-14.0); WHITE BLOOD COUNT 10.6 10^3/uL (4.0-10.5)
[2018-09-17] MEDS: RINGERS SOLUTION,LACTATED 1,000 ML IV PRN (08:05)
[2018-09-17] MEDS ORDERED: OXYCODONE-ACETAMINOPHEN 5-325 MG TABLET PO PRN (10:32)
[2018-09-17] MEDS: NORMAL SALINE 1000 ML 1,000 ML with POTASSIUM CHLORIDE 20 MEQ, MAGNESIUM SULFATE 8 MEQ,... IV SCH ×5 (18:06)
--- NOTE | 2018-09-17 18:26 | PDOC PROGRESS REPORT ---
Subjective Progress Note for:: 09/17/18 Subjective:: THEODORE FISCHER is a 43 year old man who has a history of extensive alcohol use admitted 09/14/18 for alcoholic pancreatitis. Patient was seen on morning rounds. He was found sitting upright in bed on room air. He reports continued epigastric abdominal pain radiating to his back, though overall improved and not worsened by start of clear liquid diet. He denies nausea or vomiting. He further denies fever, chills, chest pain, palpitations, dyspnea. He has no other questions or concerns. No concerns per nursing. Reason For Visit: ALCOHOL INDUCED PANCREATITIS Physical Exam Vital Signs: Temp Pulse Resp BP Pulse Ox 99.3 F 74 16 145/91 H 94 09/17/18 15:04 09/17/18 15:04 09/17/18 15:04 09/17/18 15:04 09/17/18 15:04 Intake & Output 09/16/18 09/17/18 09/18/18 06:59 06:59 06:59 Intake Total 3193 4343 1240 Output Total 460 Balance 3193 3883 1240 Weight 57.5 kg General appearance: PRESENT: no acute distress, cooperative, thin, well- developed, well-nourished Head exam: PRESENT: atraumatic, normocephalic Eye exam: PRESENT: conjunctiva pink, EOMI, PERRLA. ABSENT: scleral icterus Ear exam: PRESENT: normal external ear exam Mouth exam: PRESENT: moist, tongue midline Neck exam: ABSENT: carotid bruit, JVD, lymphadenopathy, thyromegaly Respiratory exam: PRESENT: clear to auscultation gibran, symmetrical, unlabored. ABSENT: rales, rhonchi, wheezes Cardiovascular exam: PRESENT: RRR. ABSENT: diastolic murmur, rubs, systolic mur mur Pulses: PRESENT: normal dorsalis pedis pul Vascular exam: PRESENT: normal capillary refill GI/Abdominal exam: PRESENT: normal bowel sounds, soft, tenderness. ABSENT: distended, guarding, mass, organolmegaly, rebound Rectal exam: PRESENT: deferred Extremities exam: PRESENT: full ROM. ABSENT: calf tenderness, clubbing, pedal edema Neurological exam: PRESENT: alert, awake, oriented to person, oriented to place, oriented to time, oriented to situation, CN II-XII grossly intact. ABSENT: motor sensory deficit Psychiatric exam: PRESENT: appropriate affect, normal mood. ABSENT: homicidal ideation, suicidal ideation Skin exam: PRESENT: dry, intact, warm. ABSENT: cyanosis, rash Results Laboratory Results: 09/17/18 05:25 09/16/18 05:31 09/17/18 09/17/18 05:25 05:25 WBC 10.6 H RBC 4.27 L Hgb 14.1 Hct 41.8 MCV 98 H MCH 33.0 MCHC 33.8 RDW 13.7 Plt Count 185 Magnesium 2.0 Impressions: Abdomen/Pelvis CT 09/14/18 00:00 IMPRESSION: 1. Peripancreatic inflammatory changes with trace ascites, suggestive of acute pancreatitis. The inflammatory changes extend to adjacent small bowel loops at the upper abdomen, superimposed enteritis is not excludable. 2. Mild bibasilar atelectasis and trace bilateral pleural effusions. Assessment and Plan - Diagnosis (1) Pancreatitis Qualifiers: Chronicity: acute Is this a current diagnosis for this admission?: Yes Plan: Improved; nausea and vomiting have resolved, decreased pain, tolerating clear liquid diet. Ct ABD/Pelvis reveals peripancreatic inflammatory changes with mild bibasilar atelectaisis and trace pleural effusions. Lipase 3502-> 328 WBC 10.6 today, TMax last 48 hours 100.3 Patient is admitted to the medical floor. Clear liquids; advance to brat diet as tolerated. Continue IVF. Antiemetics and analgesics as needed. Accu-Cheks every 6 hours with hypoglycemia protocol. Monitor closely for worsening leukocytosis or fever; consider repeat imaging and/or initiating antibiotic therapy. Monitor daily chemistry. (2) Abdominal pain with vomiting Is this a current diagnosis for this admission?: Yes Plan: Improved; no further episodes of nausea/vomiting. Pain is decreased. Secondary to acute pancreatitis. Tolerating clear liquid diet. Management as above. (3) Back pain Qualifiers: Back pain location: thoracic back pain Chronicity: acute Back pain laterality: bilateral Qualified Code(s): M54.6 - Pain in thoracic spine Is this a current diagnosis for this admission?: Yes Plan: Likely related to the pancreatitis. Evaluation and management as above. (4) Alcohol use disorder Is this a current diagnosis for this admission?: Yes Plan: Cessation encouraged. Patient is provided IV banana bag nightly. IV Ativan as needed for alcohol withdrawal symptoms. - Time Time Spent with patient: 15-24 minutes Medications reviewed and adjusted accordingly: Yes Anticipated discharge: Home Within: within 24 hours
[2018-09-17] MEDS: OXYCODONE-ACETAMINOPHEN 5-325 MG TABLET PO PRN (22:26)
[2018-09-18] MEDS: HEPARIN SOD (PORCINE) 5,000 UNIT/ML 1 ML SYRINGE SUBCUT SCH (05:06)
[2018-09-18 06:56] LABS: HEMATOCRIT 40.5 % (37.9-51.0); HEMOGLOBIN 13.6 g/dL (13.5-17.0); MEAN CORPUSCULAR HGB CONC 33.7 g/dL (32.0-36.0); MEAN CORPUSCULAR VOLUME 98 fl (80-97); PLATELET COUNT 266 10^3/uL (150-450); RED BLOOD COUNT 4.13 10^6/uL (4.35-5.55); WHITE BLOOD COUNT 8.5 10^3/uL (4.0-10.5)
[2018-09-18] MEDS: OXYCODONE-ACETAMINOPHEN 5-325 MG TABLET PO PRN ×2 (07:40→12:05)
[2018-09-18] MEDS: RINGERS SOLUTION,LACTATED 1,000 ML IV PRN (07:42)
[2018-09-18 12:46] VITALS: BP 137/95
--- NOTE | 2018-09-18 21:35 | PDOC DISCHARGE SUMMARY ---
General - Admit/Disc Date/PCP Admission Date/Primary Care Provider: 09/14/18 12:47 SHIRLEY SIERRA Discharge Date: 09/18/18 - Discharge Diagnosis (1) Pancreatitis Is this a current diagnosis for this admission?: Yes (2) Abdominal pain with vomiting Is this a current diagnosis for this admission?: Yes (3) Back pain Is this a current diagnosis for this admission?: Yes (4) Alcohol use disorder Is this a current diagnosis for this admission?: Yes - Additional Information Resuscitation Status: Full Code Discharge Diet: As Tolerated, Regular Discharge Activity: Activity As Tolerated, Balance Activity w/Rest Prescriptions: Ondansetron [Zofran Odt 4 mg Tablet] 1 - 2 tab PO Q4HP PRN #20 tab.rapdis PRN Reason: Oxycodone HCl/Acetaminophen [Percocet 5-325 mg Tablet] 1 tab PO Q4HP PRN #20 tablet PRN Reason: Home Medications: Acetaminophen [Tylenol 325 mg Tablet] 650 mg PO Q4HP PRN tablet 09/18/18 Ondansetron [Zofran Odt 4 mg Tablet] 1 - 2 tab PO Q4HP PRN #20 tab.rapdis 09/18/18 Oxycodone HCl/Acetaminophen [Percocet 5-325 mg Tablet] 1 tab PO Q4HP PRN #20 tablet 09/18/18 History of Present Illness History of Present Illness: H&P Per Dr. Doyle: THEODORE FISCHER is a 43 year old man who has a history of extensive alcohol use. He drinks about 12 beers on a daily basis. He is never had alcohol withdrawal and he has never had pancreatitis. Yesterday after he had a beer he had sudden onset of midline back pain radiating out to both sides. Along with that he had severe epigastric pain. He has had several episodes of emesis. No coffee grounds or blood. Came to the ER because the pain was so severe. No chest pain or difficulty breathing. No fevers or chills. Hospital Course Hospital Course: The patient was admitted to the medical floor on continuous cardiac telemetry. CT ABD/Pelvis at admission showed pain peripancreatic inflammatory changes with mild bibasilar atelectasis and trace pleural effusions. Patient was placed in n.p.o. status and supported with IV fluids, antiemetics, and analgesics as needed. Patient remained afebrile and leukocytosis, nasuea/vomiting, and abdominal discomfort improved. His diet was slowly advanced with good tolerance and adequate pain control utilizing p.o. oxycodone. Due to his history of alcohol dependence, he was provided IV banana bag nightly. He did not demonstrate evidence of alcohol withdrawal. At time of discharge, patient is in stable condition, tolerating a brat diet, with adequately controlled pain utilizing p.o. medications. He is discharged home with self-care. He is advised to follow-up with his primary care provider within 1 week. He is instructed to avoid alcohol and eat a low-fat diet. He is advised to return to the emergency department as needed for concerning symptoms. Physical Exam Vital Signs: Temp Pulse Resp BP Pulse Ox 98.3 F 79 17 137/95 H 96 09/18/18 12:43 09/18/18 12:43 09/18/18 12:43 09/18/18 12:43 09/18/18 12:43 Intake & Output 09/17/18 09/18/18 09/19/18 06:59 06:59 06:59 Intake Total 4343 2703 897 Output Total 460 Balance 3883 2703 897 Weight 57.5 kg 57.5 kg General appearance: PRESENT: no acute distress, well-developed, well-nourished Head exam: PRESENT: atraumatic, normocephalic Eye exam: PRESENT: conjunctiva pink, EOMI, PERRLA. ABSENT: scleral icterus Ear exam: PRESENT: normal external ear exam Mouth exam: PRESENT: moist, tongue midline Neck exam: ABSENT: carotid bruit, JVD, lymphadenopathy, thyromegaly Respiratory exam: PRESENT: clear to auscultation gibran. ABSENT: rales, rhonchi, wheezes Cardiovascular exam: PRESENT: RRR. ABSENT: diastolic murmur, rubs, systolic murmur Pulses: PRESENT: normal dorsalis pedis pul Vascular exam: PRESENT: normal capillary refill GI/Abdominal exam: PRESENT: normal bowel sounds, soft. ABSENT: distended, guarding, mass, organolmegaly, rebound, tenderness Rectal exam: PRESENT: deferred Extremities exam: PRESENT: full ROM. ABSENT: calf tenderness, clubbing, pedal edema Neurological exam: PRESENT: alert, awake, oriented to person, oriented to place, oriented to time, oriented to situation, CN II-XII grossly intact. ABSENT: motor sensory deficit Psychiatric exam: PRESENT: appropriate affect, normal mood. ABSENT: homicidal ideation, suicidal ideation Skin exam: PRESENT: dry, intact, warm. ABSENT: cyanosis, rash Results Laboratory Results: 09/18/18 05:23 09/16/18 05:31 09/18/18 05:23 WBC 8.5 RBC 4.13 L Hgb 13.6 Hct 40.5 MCV 98 H MCH 33.0 MCHC 33.7 RDW 14.0 Plt Count 266 Impressions: Abdomen/Pelvis CT 09/14/18 00:00 IMPRESSION: 1. Peripancreatic inflammatory changes with trace ascites, suggestive of acute pancreatitis. The inflammatory changes extend to adjacent small bowel loops at the upper abdomen, superimposed enteritis is not excludable. 2. Mild bibasilar atelectasis and trace bilateral pleural effusions. Qualifiers - * PATIENT BEING DISCHARGED WITH ANY OF THE FOLLOWING DIAGNOSIS: No Acute Heart Failure - Is this a Heart Failure Patient?: No Plan Discharge Plan: Patient discharged home with self-care. Follow up with primary care provider within 1 week. Do NOT drink alcohol. Eat a low fat diet. Return to the emergency department as needed for concerning symptoms. Time Spent: Greater than 30 Minutes
== END 2018-09-18 13:41 | disposition home or self-care (01) | DRG 440 ==
LOC: ER 10:54 → EH 12:47 → 5 14:18
PROVIDERS: ADMIT Internal Medicine; ATTEND Internal Medicine
PROC: HZ2ZZZZ Detoxification Services for Substance Abuse Treatment (ICD-10-PCS; principal; 2018-09-15)
DX: K85.90 Acute pancreatitis without necrosis or infection, unspecified (principal); F10.20 Alcohol dependence, uncomplicated
CPT/HCPCS: 36415; 74176; 80048; 80053; 80307; 81001; 82140; 82962; 83690; 83735; 84443; 85025; 85027; 85610; 85730; 96374; 96375; 99285; J1170; J1644; J1885; J2405; J3411; J3475; J3480; J3490; J7030; J7120

== ENCOUNTER 2019-06-06 18:16 | Emergency (ER) | payer MEDICAID ==
[2019-06-06] MEDS ORDERED: NORMAL SALINE 1000 ML 1,000 ML IV ONE (18:31)
[2019-06-06] MEDS ORDERED: MORPHINE SULFATE 10 MG/ML INJ IV ONE (18:32)
[2019-06-06] MEDS ORDERED: ONDANSETRON HCL INJ/PF 4 MG/2 ML SDV IV ONE (18:32)
--- NOTE | 2019-06-06 18:33 | ER Document Report ---
ED Medical Screen (RME) - General Chief Complaint: Abdominal Pain Stated Complaint: ABDOMINAL PAIN Time Seen by Provider: 06/06/19 18:26 Primary Care Provider: SHIRLEY SIERRA [Primary Care Provider] - Follow up as needed Mode of Arrival: Ambulatory Information source: Patient Notes: 44-year-old male presents with complaints of upper abdominal pain with history of pancreatitis. Reports he recently drank up tall geremias 2 days ago. Reports symptoms started yesterday afternoon. He reports severe pain. Denies fever vomiting diarrhea. Patient looks very uncomfortable. I have greeted and performed a rapid initial assessment of this patient. A comprehensive ED assessment and evaluation of the patient, analysis of test results and completion of the medical decision making process will be conducted by additional ED providers. TRAVEL OUTSIDE OF THE [place] IN LAST 30 DAYS: No - Related Data Allergies/Adverse Reactions: No Known Allergies Allergy (Verified 06/06/19 18:21) Past Medical History - Social History Chew tobacco use (# tins/day): No Frequency of alcohol use: Heavy Drug Abuse: None Renal/ Medical History: Denies: Hx Peritoneal Dialysis Past Surgical History: Reports: Hx Orthopedic Surgery - left arm fracture - Immunizations Immunizations up to date: Yes Hx Diphtheria, Pertussis, Tetanus Vaccination: Yes Physical Exam - Vital signs Vitals: Temp Pulse Resp BP Pulse Ox 98.0 F 76 16 140/83 H 93 06/06/19 18:20 06/06/19 18:20 06/06/19 18:20 06/06/19 18:20 06/06/19 18:20 Course - Vital Signs Vital signs: Temp Pulse Resp BP Pulse Ox 98.0 F 76 16 140/83 H 93 06/06/19 18:20 06/06/19 18:20 06/06/19 18:20 06/06/19 18:20 06/06/19 18:20 Doctor's Discharge - Discharge Referrals: SHIRLEY SIERRA [Primary Care Provider] - Follow up as needed
--- NOTE | 2019-06-06 19:02 | ER Document Report ---
ED General - General Mode of Arrival: Ambulatory TRAVEL OUTSIDE OF THE [place] IN LAST 30 DAYS: No <LULU MONGE - Last Filed: 06/06/19 20:27> <ITALO SILVERIO - Last Filed: 06/07/19 00:03> - General Chief Complaint: Abdominal Pain Stated Complaint: ABDOMINAL PAIN Time Seen by Provider: 06/06/19 18:26 Primary Care Provider: SHIRLEY SIERRA [Primary Care Provider] - Follow up as needed Notes: Patient is a 44-year-old -[place] male with no reported past medical history who presents to the emergency department with a chief complaint of epigastric abdominal pain that began this morning. Patient reports yesterday he had 2 tall cans of Briseyda. He states early the next morning he began having some epigastric abdominal discomfort. He states throughout the day today is just seem to worsen. He denies any associated nausea, vomiting or diarrhea. He denies any fever, chills or night sweats. He denies any chest pain or shortness of breath. No recent travel or known sick contacts. There was some question in his history as to whether or not he has had pancreatitis in the past. He denies ever having knowledge of this. He does admit that he had an episode like this once in the past where he was given fluids and medicines and he got better. Denies drugs. (LULU MONGE) - Related Data Allergies/Adverse Reactions: No Known Allergies Allergy (Verified 06/06/19 18:21) Past Medical History - General Information source: Patient - Social History Smoking Status: Current Every Day Smoker Chew tobacco use (# tins/day): No Frequency of alcohol use: Heavy Drug Abuse: None Family History: Reviewed & Not Pertinent Patient has suicidal ideation: No Patient has homicidal ideation: No Renal/ Medical History: Denies: Hx Peritoneal Dialysis Past Surgical History: Reports: Hx Orthopedic Surgery - left arm fracture - Immunizations Immunizations up to date: Yes Hx Diphtheria, Pertussis, Tetanus Vaccination: Yes <LULU MONGE - Last Filed: 06/06/19 20:27> Review of Systems - Review of Systems Gastrointestinal: Abdominal pain -: Yes All other systems reviewed and negative <LULU MONGE - Last Filed: 06/06/19 20:27> Physical Exam - General General appearance: Appears well, Alert In distress: None - HEENT Head: Normocephalic, Atraumatic Eyes: Normal Conjunctiva: Normal Extraocular movements intact: Yes Pupils: PERRL Mouth/Lips: Normal Mucous membranes: Moist Neck: Supple - Respiratory Respiratory status: No respiratory distress Chest status: Nontender Breath sounds: Normal Chest palpation: Normal - Cardiovascular Rhythm: Regular Heart sounds: Normal auscultation - Abdominal Inspection: Normal Distension: No distension Bowel sounds: Normal Tenderness: Tender - Left upper quadrant and epigastric region, worse in the epigastric - Back Back: No: CVA tenderness - Neurological Neuro grossly intact: Yes Cognition: Normal Orientation: AAOx4 - Psychological Associated symptoms: Normal affect, Normal mood - Skin Skin Temperature: Warm Skin Moisture: Dry Skin Color: Normal <LULU MONGE - Last Filed: 06/06/19 20:27> - Vital signs Vitals: Temp Pulse Resp BP Pulse Ox 98.0 F 76 16 140/83 H 93 06/06/19 18:20 06/06/19 18:20 06/06/19 18:20 06/06/19 18:20 06/06/19 18:20 - Abdominal Notes: Pain noted to be worse with changing of positions such as flexion of the abdominal muscles (LULU MONGE) Course - Laboratory Result Diagrams: 06/06/19 19:20 06/06/19 19:20 <LULU MONGE - Last Filed: 06/06/19 20:27> - Laboratory Result Diagrams: 06/06/19 19:20 06/06/19 19:20 <ITALO SILVERIO - Last Filed: 06/07/19 00:03> - Re-evaluation Re-evalutation: 06/06/19 20:27 Pending work-up at this time, patient signed out to oncoming provider, Italo Silverio. (LULU MONGE) 06/06/19 21:15 Patient reevaluated, vital signs stable, patient reports some pain in the epigastric area but reports he is feeling improved. CT abdomen pelvis shows pancreatitis. Lipase 1100. Patient would like to try oral fluids, oral pain and oral nausea medication with hopes of discharge home. If patient is unable to tolerate p.o. will admit patient. 06/07/19 00:00 Patient tolerated oral medications and fluids without difficulty. He will be discharged home at this time with strict ED return precautions. (ITALO SILVERIO) - Vital Signs Vital signs: Temp Pulse Resp BP Pulse Ox 98.0 F 76 16 140/83 H 93 06/06/19 18:20 06/06/19 18:20 06/06/19 18:20 06/06/19 18:20 06/06/19 18:20 - Laboratory Laboratory results interpreted by me: 06/06/19 06/06/19 06/06/19 19:20 19:20 20:50 Hgb 18.8 H Hct 54.1 H MCV 100 H MCH 34.6 H RDW 17.1 H Glucose 67 L Calcium 10.3 H Total Bilirubin 2.1 H AST 94 H ALT 78 H Total Protein 8.4 H Amylase 164 H Lipase 1176.4 H Urine Protein 30 H Urine Ketones 20 H Urine Urobilinogen 2.0 H Discharge <LULU MONGE - Last Filed: 06/06/19 20:27> <ITALO SILVERIO - Last Filed: 06/07/19 00:03> - Discharge Clinical Impression: Pancreatitis Qualifiers: Chronicity: acute Pancreatitis type: alcohol induced Acute pancreatitis complication: unspecified Qualified Code(s): K85.20 - Alcohol induced acute pancreatitis without necrosis or infection Condition: Stable Disposition: HOME, SELF-CARE Additional Instructions: Pancreatitis Pancreatitis is an inflammation of the pancreas, an organ at the back of your abdomen. The pancreas produces insulin and enzymes that digest your food. Pancreatitis can be caused by gallstones in the bile duct, by alcohol or viruses, or by excess fat or calcium in the blood stream. Occasionally, pancreatitis occurs when a stomach ulcer frias through into the pancreas. We try to find the cause of pancreatitis, but some tests can't be done until the pancreas heals. The usual symptoms of pancreatitis are pain in the pit of the stomach that goes straight through to the back, vomiting, and low-grade fever. Severe cases require hospital admission, but many patients with mild pancreatitis do well at home. You will probably need medicine for pain and for vomiting. Sometimes we prescribe medicine to decrease stomach acid secretion and to decrease flow of pancreatic juices. Start with a diet of clear liquids (soda pop, juices). When the pain is decreasing, you can add some simple starches (potato, toast, applesauce). Avoid proteins and fats until you are completely painfree. When you're better, your doctor may suggest treatment to prevent future pancreatitis (such as gallbladder removal). Avoid alcohol forever. Get immediate treatment for any future episodes. Contact your doctor at once or return here if you have increasing pain, shortness of breath, general swelling, increasing size of the abdomen, continued vomiting, muscle spasms, or other new symptoms. Prescriptions: Hydrocodone/Acetaminophen [[place] 5-325 mg Tablet] 1 tab PO Q6H PRN #12 tablet PRN Reason: For Pain Ondansetron [Zofran Odt 4 mg Tablet] 1 - 2 tab PO Q4H PRN #15 tab.rapdis PRN Reason: For Nausea/Vomiting Forms: Return to Work Referrals: SHIRLEY SIERRA [Primary Care Provider] - Follow up as needed
[2019-06-06 19:44] LABS: ABSOLUTE LYMPHOCYTES (AUTO) 1.4 10^3/uL (0.5-4.7); ABSOLUTE MONOCYTES (AUTO) 0.6 10^3/uL (0.1-1.4); ABSOLUTE NEUT (AUTO) 5.1 10^3/uL (1.7-8.2); BASOPHILS % (AUTO) 0.4 % (0-2); EOSINOPHILS % (AUTO) 0.1 % (0-6); HEMATOCRIT 54.1 % (37.9-51.0); HEMOGLOBIN 18.8 g/dL (13.5-17.0); LYMPHOCYTES % (AUTO) 19.3 % (13-45); MEAN CORPUSCULAR HEMOGLOBIN 34.6 pg (27.0-33.4); MEAN CORPUSCULAR HGB CONC 34.7 g/dL (32.0-36.0); MEAN CORPUSCULAR VOLUME 100 fl (80-97); MONOCYTES % (AUTO) 8.6 % (3-13); PLATELET COUNT 243 10^3/uL (150-450); RED BLOOD COUNT 5.43 10^6/uL (4.35-5.55); RED CELL DISTRIBUTION WIDTH 17.1 % (11.5-14.0); SEGMENTED NEUTROPHILS % (AUTO) 71.6 % (42-78); TOTAL CELLS COUNTED % (AUTO) 100 %; WHITE BLOOD COUNT 7.1 10^3/uL (4.0-10.5)
[2019-06-06 20:05] LABS: ALBUMIN 4.7 g/dL (3.5-5.0); ALCOHOL < 10 mg/dL (NONE DETECTED); ALKALINE PHOSPHATASE 78 U/L (38-126); AMYLASE 164 U/L (30-110); ANION GAP 11 (5-19); ASPARTATE AMINO TRANSFERASE 94 U/L (17-59); BILIRUBIN,DIRECT 0.3 mg/dL (0.0-0.4); BILIRUBIN,TOTAL 2.1 mg/dL (0.2-1.3); BLOOD UREA NITROGEN 13 mg/dL (7-20); CALCIUM 10.3 mg/dL (8.4-10.2); CARBON DIOXIDE 25 mmol/L (22-30); CHLORIDE 102 mmol/L (98-107); POTASSIUM 4.4 mmol/L (3.6-5.0); TOTAL PROTEIN 8.4 g/dL (6.3-8.2)
[2019-06-06 20:07] LABS: GLUCOSE 67 mg/dL (75-110)
--- NOTE | 2019-06-06 20:56 | RADIOLOGY REPORT (SQ) ---
EXAM DESCRIPTION: CT scan of the abdomen and pelvis CLINICAL HISTORY: 44 years Male; fall, rib fx, RUQ and side pain TECHNIQUE: CT of the abdomen and pelvis with intravenous contrast. Delayed imaging of the abdomen and pelvis was also performed. All CT scans at this facility use dose modulation, iterative reconstruction, and/or weight based dosing when appropriate to reduce radiation dose to as low as reasonably achievable. This exam was performed according to our department optimization program which includes automated exposure control, adjustment of the mA and/or kv according to patient size and/or use of iterative reconstruction technique. COMPARISON: CT scan of the abdomen and pelvis without contrast September 14, 2018 FINDINGS: Lower chest:The lung bases are clear. The visualized portion of heart and great vessels are normal. Abdomen: Liver and biliary tree:The liver and gallbladder appear normal. Portal vein and hepatic veins are patent. No biliary dilatation. Pancreas: Subtle edema is identified surrounding the pancreatic head. No deep vitalized pancreas. No focal fluid focal collections. Findings are suspicious for traumatic pancreatitis. Spleen:Within normal limits Kidneys: Kidneys are normal in size, shape and position. No stones. No mass or hydronephrosis. Symmetric renal enhancement. Adrenal glands:Within normal limits Vascular structures:Within normal limits Retroperitoneum: No mass or lymphadenopathy Abdominal wall: normal GI: The stomach is empty. No bowel obstruction. No definitive bowel wall thickening. Moderate stool is noted in the colon. Appendix: The appendix appears normal. General: There is a small amount of fluid seen adjacent to the pancreatic head. No definitive free air or free fluid. Pelvis: Lymph nodes: No mass or lymphadenopathy Bladder: Unremarkable. Pelvis: No pelvic mass or adenopathy. Bones: No acute bone findings. IMPRESSION: 1. Subtle fluid and edema adjacent to the head of the pancreas suggesting the possibility of traumatic pancreatitis. No deep vitalized pancreas. No loculated fluid collections. 2. No evidence of solid organ injury.
[2019-06-06 21:33] LABS: APPEARANCE,URINE SLIGHTLY-CLOUDY; BILIRUBIN,URINE NEGATIVE (NEGATIVE); COLOR,URINE DARK YELLOW; GLUCOSE, URINE NEGATIVE (NEGATIVE); KETONES,URINE 20 mg/dL (NEGATIVE); LEUKOCYTE ESTERASE,URINE NEGATIVE (NEGATIVE); NITRITE,URINE NEGATIVE (NEGATIVE); PROTEIN,URINE 30 mg/dL (NEGATIVE); URINE SPECIFIC GRAVITY 1.029
[2019-06-06] MEDS ORDERED: OXYCODONE-ACETAMINOPHEN 5-325 MG TABLET PO ONE (22:52)
[2019-06-06] MEDS ORDERED: ONDANSETRON 4 MG TAB.RAPDIS PO ONE (22:52)
[2019-06-07] MEDS ORDERED: HYDROCODONE/ACETAMINOPHEN 5-325 MG (6 TAB/ER DISP) PO PRN
[2019-06-07] MEDS ORDERED: ONDANSETRON ODT 4 MG TAB (6 TAB/ER DISP) PO PRN
[2019-06-07 00:09] VITALS: BP 124/68
--- NOTE | 2019-06-07 11:01 | EKG REPORT ---
SEVERITY:- ABNORMAL ECG - SINUS RHYTHM LVH WITH IVCD AND SECONDARY REPOL ABNRM POSSIBLE ISCHEMIC T WAVE CHANGES ANT LEADS. : Confirmed by: Nancy Pinto 07-Jun-2019 11:01:28
== END 2019-06-07 00:05 | disposition home or self-care (01) ==
LOC: ER 18:16
DX: K85.20 Alcohol induced acute pancreatitis without necrosis or infection (principal); R10.10 Upper abdominal pain, unspecified; F17.200 Nicotine dependence, unspecified, uncomplicated
CPT/HCPCS: 93005; 99284; 96361; 96374; 96375; 36415; 80307; 82150; 83690; 85025; 81001; 80053; 84484; 74177; 93010; S0119; J2270; J2405; J7030